=== PATIENT | male | born 1980 | race Caucasian/White ===

== ENCOUNTER → 2017-03-02 | Outpatient (CLI) | payer OTHER ==
[~2017-03-02] MED LIST: 'CLONIDINE0.1 MG PO; AMOXICILLIN500 MG PO; ANAPROX DS550 MG PO; BENADRYL25 MG PO; BENZTROPINE MESY1 MG PO; CATAFLAM50 MG PO; CLARITIN10 MG PO; CLEOCIN HCL150 MG PO; CLINDAMYCIN HC300 MG PO; CLINDAMYCIN150 MG PO; CLINDAMYCIN300 MG PO; CORDROL20 MG PO; CRESTOR10 MG PO; DARVOCET N 1001 TAB PO; DAYPRO600 M1 PO; FIORINAL PO; HYDROCODONE BIT1 T11 PO; KENALOG0.1% TP; LIDEX0.05% T; MEDROL DOSEPAK4 MG PO; MOTRIN800 MG; MOTRIN800 MG PO; MULTIVITAMINS1 EACH PO; NAPROXEN500 M1 PO; NEURONTIN100 MG PO; NEURONTIN300 MG PO; NORVASC5 MG PO; PAXIL40 M1 PO; PEN-VEE K500 MG PO; PENICILLIN V500 MG; PENICILLIN250 MG PO; PERCOCET 325 MG1 TA7 PO; PRAVACHOL10 MG PO; PREDNICOT20 MG PO; REXULTI2 MG PO; SEROQUEL100 MG PO; SEROQUEL300 MG PO; TRAMADOL HCL50 MG PO; TRIMOX500 MG PO; VICODIN 5/500 505 MG PO; VICODIN ES 7501 TAB PO; VITAMIN D50000 I3 PO; WELLBUTRIN SR100 MG PO; WYMOX500 MG PO; XANAX0.5 MG PO; XANAX1 MG PO; ZANTAC 150150 MG PO; ZANTAC150 MG PO; ZITHROMAX Z PA250 MG PO; Zofran4 MG PO
== END | disposition home or self-care (01) ==
LOC: RAD 14:20
DX: S69.91XD Unspecified injury of right wrist, hand and finger(s), subsequent encounter (principal); X58.XXXD Exposure to other specified factors, subsequent encounter

== ENCOUNTER → 2017-03-08 | Outpatient (CLI) | payer OTHER ==
[~2017-03-08] MED LIST changes: +ASPIRIN81 M1 PO; +BUSPAR15 MG PO; +CLONIDINE0.1 MG/21 TD; +LIPITOR40 MG PO; +NITROGLYCERIN0.4 MG SL; +PLAVIX75 M1 PO; +PRILOSEC20 M1 PO; +PROAIR HFA8.5 GM INH; +TOPROL XL25 MG PO
== END | disposition home or self-care (01) ==
LOC: CARD 02:48
DX: R53.81 Other malaise (principal); R07.2 Precordial pain

== ENCOUNTER → 2017-07-19 | Outpatient (CLI) | payer OTHER ==
[2017-07-19 12:59] LABS: CREATININE 1.07 mg/dL (0.70-1.30)
[2017-07-19 13:04] LABS: BUN 4 mg/dl (7-24)
== END | disposition home or self-care (01) ==
LOC: LAB 12:04
PROVIDERS: Psychiatry & Neurology Neurology
DX: R29.898 Other symptoms and signs involving the musculoskeletal system (principal)

== ENCOUNTER → 2017-08-04 | Outpatient (CLI) | payer OTHER | END | disposition home or self-care (01) | LOC: MRI 10:45 | DX: R29.898 Other symptoms and signs involving the musculoskeletal system (principal); R29.2 Abnormal reflex; I10 Essential (primary) hypertension; R53.1 Weakness ==

== ENCOUNTER 2017-08-21 23:05 | Emergency (ER) | payer OTHER ==
[~2017-08-21] VITALS: Ht 162.5 cm; Wt 81.6 kg
== END 2017-08-22 01:04 | disposition home or self-care (01) ==
LOC: ED 23:05
DX: S90.31XA Contusion of right foot, initial encounter (principal); I10 Essential (primary) hypertension; E78.00 Pure hypercholesterolemia, unspecified; F41.1 Generalized anxiety disorder; E87.6 Hypokalemia; G47.00 Insomnia, unspecified; F17.200 Nicotine dependence, unspecified, uncomplicated; Z88.8 Allergy status to other drugs, medicaments and biological substances; Z88.5 Allergy status to narcotic agent; Z79.82 Long term (current) use of aspirin; Z79.899 Other long term (current) drug therapy; W04.XXXA Fall while being carried or supported by other persons, initial encounter; Y93.89 Activity, other specified; Y92.89 Other specified places as the place of occurrence of the external cause; Y99.8 Other external cause status

== ENCOUNTER → 2017-10-19 | Outpatient (CLI) | payer OTHER | END | disposition home or self-care (01) | LOC: MRI 13:55 | DX: M54.2 Cervicalgia (principal); R20.0 Anesthesia of skin; R53.1 Weakness; R29.2 Abnormal reflex ==

== ENCOUNTER → 2019-02-07 | Outpatient (CLI) | payer OTHER ==
[2019-02-07 09:40] LABS: BASO # 0.1 10*3/uL (0.0-0.1); BASO % 0.7 % (0.0-1.0); EOS # 0.2 10*3/uL (0.0-0.4); EOS % 3.1 % (1.0-4.0); HEMATOCRIT 42.4 % (42.0-52.0); HEMOGLOBIN 14.2 g/dl (14.0-18.0); LYMPH # 3.1 10*3/uL (1.3-4.4); LYMPH % 41.8 % (27.0-41.0); MEAN CELL VOLUME 91.4 fl (80.0-94.0); MEAN CORPUSCULAR HGB 30.6 pg (27.0-31.0); MEAN CORPUSCULAR HGB CONC 33.5 g/dl (33.0-37.0); MEAN PLATELET VOLUME 9.3 fl (9.6-12.3); MONO # 0.5 10*3/uL (0.1-1.0); MONO % 6.8 % (3.0-9.0); NEUT # 3.5 10*3/uL (2.3-7.9); NEUT % 47.2 % (47.0-73.0); PLATELET COUNT AUTOMATED 285 10*3/uL (130-400); RED BLOOD COUNT 4.64 10*6/uL (4.50-5.90); RED CELL DISTRI WIDTH 12.3 % (0-14.5); WHITE BLOOD COUNT 7.4 10*3/uL (4.8-10.8)
[2019-02-07 10:10] LABS: ALBUMIN 3.7 gm/dl (3.1-4.5); ALKALINE PHOSPHATASE 108 U/L (45-117); BUN 5 mg/dl (7-24); CHLORIDE 108 mmol/L (98-107); CHOLESTEROL 161 mg/dL (<200); CREATININE 1.16 mg/dL (0.70-1.30); HDL CHOLESTEROL 23 mg/dl (40-60); POTASSIUM 3.3 mmol/L (3.5-5.1); SGOT/AST 11 IU/L (3-35); SGPT/ALT 23 U/L (12-78); SODIUM 142 mmol/L (136-145); TOTAL PROTEIN 6.7 gm/dL (6.4-8.2); TRIGLYCERIDES 524 mg/dl (<150)
== END | disposition home or self-care (01) ==
LOC: LAB 09:05
PROVIDERS: Registered Nurse Flight
DX: Z13.21 Encounter for screening for nutritional disorder (principal); F41.9 Anxiety disorder, unspecified; E78.5 Hyperlipidemia, unspecified; I10 Essential (primary) hypertension

== ENCOUNTER → 2019-10-16 | Outpatient (CLI) | payer OTHER ==
[2019-10-16 09:46] LABS: ALBUMIN 3.7 gm/dl (3.1-4.5); ALKALINE PHOSPHATASE 94 U/L (45-117); BUN 6 mg/dl (7-24); CHLORIDE 108 mmol/L (98-107); CHOLESTEROL 160 mg/dL (<200); CREATININE 1.21 mg/dL (0.70-1.30); HDL CHOLESTEROL 29 mg/dl (40-60); LDL CHOLESTEROL 54 mg/dL (9-159); POTASSIUM 3.5 mmol/L (3.5-5.1); SGOT/AST 15 IU/L (3-35); SGPT/ALT 27 U/L (12-78); SODIUM 142 mmol/L (136-145); TOTAL PROTEIN 6.6 gm/dL (6.4-8.2); TRIGLYCERIDES 384 mg/dl (<150); VLDL CHOLESTEROL 77 mg/dL (6-40)
== END | disposition home or self-care (01) ==
LOC: LAB 08:54
PROVIDERS: Registered Nurse Flight
DX: R73.01 Impaired fasting glucose (principal); E78.5 Hyperlipidemia, unspecified

== ENCOUNTER 2021-12-03 00:46 | Emergency (ER) | payer OTHER ==
[~2021-12-03] VITALS: Ht 180.3 cm; Wt 84.0 kg
[2021-12-03 01:14] LABS: BASO # 0.1 10*3/uL (0.0-0.1); BASO % 0.4 % (0.0-1.0); EOS % 0.1 % (1.0-4.0); HEMATOCRIT 45.7 % (42.0-52.0); LYMPH # 1.6 10*3/uL (1.3-4.4); LYMPH % 13.8 % (27.0-41.0); MEAN CELL VOLUME 92.9 fl (80.0-94.0); MEAN CORPUSCULAR HGB 33.1 pg (27.0-31.0); MEAN CORPUSCULAR HGB CONC 35.7 g/dl (33.0-37.0); MEAN PLATELET VOLUME 9.2 fl (9.6-12.3); MONO # 0.5 10*3/uL (0.1-1.0); NEUT # 9.1 10*3/uL (2.3-7.9); NEUT % 81.3 % (47.0-73.0); PLATELET COUNT AUTOMATED 325 10*3/uL (130-400); RED BLOOD COUNT 4.92 10*6/uL (4.50-5.90); RED CELL DISTRI WIDTH 12.7 % (0-14.5); WHITE BLOOD COUNT 11.2 10*3/uL (4.8-10.8)
[2021-12-03 01:26] LABS: ACT PARTIAL THROMBO TIME 27.3 SECONDS (20.0-32.1)
[2021-12-03 01:28] LABS: ALKALINE PHOSPHATASE 99 U/L (45-117); BUN 8 mg/dl (7-24); CHLORIDE 102 mmol/L (98-107); CREATININE 0.99 mg/dL (0.70-1.30); POTASSIUM 3.5 mmol/L (3.5-5.1); SGOT/AST 72 IU/L (3-35); SGPT/ALT 52 U/L (12-78); SODIUM 135 mmol/L (136-145); TOTAL PROTEIN 7.8 gm/dL (6.4-8.2)
== END 2021-12-03 05:12 | disposition short-term general hospital (02) ==
LOC: ED 00:46
PROVIDERS: Emergency Medicine
DX: I21.9 Acute myocardial infarction, unspecified (principal); Z88.1 Allergy status to other antibiotic agents; Z88.8 Allergy status to other drugs, medicaments and biological substances; Z79.899 Other long term (current) drug therapy; Z79.82 Long term (current) use of aspirin; Z87.891 Personal history of nicotine dependence; Z98.890 Other specified postprocedural states

== ENCOUNTER → 2023-11-15 | Outpatient (CLI) | payer OTHER ==
[~2023-11-15] MED LIST changes: +BRILINTA90 M1 PO; +Regadenoson 0.4 MG/5 ML SYR IV ONE; +Technetium Tc 99M Tetrofosmi 0.23 MG KIT IJ SCH
== END | disposition home or self-care (01) ==
LOC: CARD 00:49
PROVIDERS: ATTEND Internal Medicine Cardiovascular Disease
DX: I24.89 Other forms of acute ischemic heart disease (principal); I25.119 Atherosclerotic heart disease of native coronary artery with unspecified angina pectoris; R94.31 Abnormal electrocardiogram [ECG] [EKG]